=== PATIENT | female | born 1945 | race Caucasian/White ===

== ENCOUNTER 2016-04-28 09:02 | Emergency (ER) | payer MEDICARE, OTHER ==
--- NOTE | 2016-04-28 10:19 | ED ---
Extremity Problem HPI - General Chief complaint: Extremity Problem,Nontraumatic Stated complaint: gout flair left foot, left leg hot and swollen Time Seen by Provider: 04/28/16 09:49 Source: patient, RN notes reviewed Mode of arrival: wheelchair Limitations: no limitations - History of Present Illness Initial comments: 70-year-old female presents to emergency department chief complaint of gout flareup. Patient states that this started today. Patient statespain over the top of her foot which is typically where her gout is in pain with movement and walking which is typical of her gout. Patient states he tried to go to Dr. Dolan's office with varicose if she came here. Patient states she only gets injections or into the joint space when this happens patient states she has ambulate however with pain. Patient states there is no falls or trauma to the foot. Patient states exactly, without she just needs her steroids and pain medication until it flares down. Patient denies any changes in diet or any other symptoms at this time.Patient denies any recent fever, chills, shortness of breath, chest pain, back pain, abdominal pain, nausea vomiting, numbness or tingling, dysuria or hematuria, constipation or diarrhea, headaches or visual changes, or any other current symptoms. - Related Data Home Medications Medication Instructions Recorded Confirmed Lisinopril [Prinivil] 10 mg PO DAILY 09/30/14 04/28/16 Metoprolol Tartrate 25 mg PO DAILY 09/30/14 04/28/16 Sertraline [Zoloft] 50 mg PO DAILY 09/30/14 04/28/16 Ascorbic Acid [Vitamin C] 500 mg PO DAILY 10/01/14 04/28/16 Biotin 5 mg PO DAILY 10/01/14 04/28/16 Loperamide [Imodium] 2 mg PO DAILY 12/19/14 04/28/16 Vit A,C & E/Lutein/Minerals 1 tab PO DAILY 12/19/14 04/28/16 [Ocuvite with Lutein Tablet] Previous Rx's Medication Instructions Recorded Hydrocodone/Acetaminophen [[place] 1 each PO Q6HR PRN #20 tab 04/28/16 5-325] predniSONE 50 mg PO DAILY #5 tab 04/28/16 Allergies Allergy/AdvReac Type Severity Reaction Status Date / Time codeine Allergy Rash/Hives Verified 01/02/17 09:55 Review of Systems ROS Statement: Those systems with pertinent positive or pertinent negative responses have been documented in the HPI. ROS Other: All systems not noted in ROS Statement are negative. Past Medical History Past Medical History: GERD/Reflux, GI Bleed, Hypertension, Myocardial Infarction ([place]) Additional Past Medical History / Comment(s): gout Last Myocardial Infarction Date:: 1997 History of Any Multi-Drug Resistant Organisms: None Reported Past Surgical History: Appendectomy, Heart Catheterization Additional Past Surgical History / Comment(s): Macular hole and eye surgery Past Anesthesia/Blood Transfusion Reactions: No Reported Reaction Past Psychological History: Anxiety Smoking Status: Former smoker Past Alcohol Use History: None Reported Past Drug Use History: None Reported - Past Family History Father Family Medical History: Cancer Additional Family Medical History / Comment(s): COLON CANCER Mother Family Medical History: Coronary Artery Disease (CAD) General Exam - General Exam Comments Initial Comments: General: The patient is awake and alert, in no distress, and does not appear acutely ill. Neck: The neck is supple, there is no tenderness . Cardiovascular: There is a regular rate and rhythm. No murmur, rub or gallop is appreciated. Respiratory: Lungs are clear to auscultation, respirations are non-labored, breath sounds are equal. No wheezes, stridor, rales, or rhonchi. Musculoskeletal: Patient has 2+ pulses. Left lower extremity. Sensation intact. Full range motion of left hip left knee and left foot. Patient. Tenderness along the forefoot with some redness noted. No deformity. Full Range of motion of left ankle and left toes. Neurological: CN II-XII intact, There are no obvious motor or sensory deficits. Coordination appears grossly intact. Speech is normal. Skin: Skin is warm and dry and no rashes or lesions are noted. Psychiatric: Normal mood and affect. Limitations: no limitations Course Vital Signs 04/28/16 09:41 Temperature 98.3 F Pulse Rate 62 Respiratory 18 Rate Blood Pressure 200/87 O2 Sat by Pulse 96 Oximetry Medical Decision Making - Medical Decision Making 70-year-old female presents emergency Department what appears to be gout exacerbation function like patient's normal gout. Similar to her steroids pain medication. We discussed follow-up and return parameters. We discussed all the patient's questions. She states she understood and she is in agreement with this plan. This time patient will be discharged home. Disposition Clinical Impression: Acute gout Disposition: HOME SELF-CARE Condition: Stable Instructions: Gout (ED) Additional Instructions: Please use medication as discussed. Please follow up with family doctor if symptoms have not improved over the next two days. Please return to the emergency room if your symptoms increase or worsen or for any other concerns. Prescriptions: Hydrocodone/Acetaminophen [[place] 5-325] 1 each PO Q6HR PRN #20 tab PRN Reason: Pain predniSONE 50 mg PO DAILY #5 tab Referrals: Radha Mims MD [Primary Care Provider] - 1-2 days Time of Disposition: 10:18
[2016-04-28 10:35] VITALS: BP 186/97; PULSE 57; RESP 16; TEMP 97.7
== END 2016-04-28 10:35 | disposition home or self-care (01) ==
LOC: EC 09:02
DX: M10.9 Gout, unspecified (principal); I10 Essential (primary) hypertension; F41.9 Anxiety disorder, unspecified; Z79.899 Other long term (current) drug therapy; Z88.5 Allergy status to narcotic agent; Z87.891 Personal history of nicotine dependence
CPT/HCPCS: 99283

== ENCOUNTER → 2017-01-09 | Outpatient (CLI) | payer MEDICARE, OTHER ==
--- NOTE | 2017-01-09 20:00 | MR ---
EXAMINATION TYPE: MR brain wo/w con DATE OF EXAM: 01/09/2017 COMPARISON: 06/14/2010 HISTORY: Hemiparesis following cerebral infarction, left sided weakness TECHNIQUE: Multiplanar, multisequence images of the brain and brainstem is performed without and with IV contras t, utilizing 7 mL intravenous Gadavist . FINDINGS: Craniocervical junction maintained. Sella turcica has a normal appearance. Diffusion-weighted imaging demonstrates no diagnostic evidence of acute. No midline shift or mass effect. Changes of chronic sinusitis noted. Linear area of enhancement within the midbrain and frontal lobe suggestive of tiny incidental venous angioma. Mild generalized degenerative change. Single focus of abnormal signal within the left basal ganglia l ikely related to remote lacunar infarct. There are a few scattered areas of abnormal signal involving the white matter bilaterally which are nonspecific. Within the left frontal cerebral convexity there is an extra-axial mass with homogeneous enhancement measuring 1.2 x 0.6 cm compatible with a meningioma. No significant midline shift. No mass effect. Changes of chronic mastoiditis noted. IMPRESSION: 1. No evidence of acute ischemia. 2. Nonspecific white matter changes. Differential diagnosis includes remote microvascular ischemia. O ther etiologies including hypertension, vasculitis, migraine headaches and demyelinating process not entirely excluded. 3. There is a small stable appearing extra-axial mass overlying the left frontal convexity measuring 1.2 x 0.6 cm compatible with meningioma. No significant midline shift or mass effect 4. Basilar arter y is diminutive in size correlate for vertebral basilar insufficiency.
== END | disposition home or self-care (01) ==
LOC: RADMRIMAIN 18:13
PROVIDERS: ATTEND Family Medicine
DX: R90.82 White matter disease, unspecified (principal); G93.9 Disorder of brain, unspecified
CPT/HCPCS: 70553; A9581